=== PATIENT | female | born 1965 | race Hispanic/Latino ===

== ENCOUNTER 2018-04-23 07:53 | Day surgery (SDC) | payer OTHER ==
[2018-04-23] MEDS ORDERED: NEURONTIN ONE (08:35)
[2018-04-23] MEDS ORDERED: TRANSDERM-SCOP TD ONE (08:36)
[2018-04-23] MEDS ORDERED: NACL BACTERIOSTATIC INFILTRATI ONE (08:38)
[2018-04-23] MEDS ORDERED: DILAUDID IV PRN (08:43)
[2018-04-23] MEDS ORDERED: ZOFRAN IV PRN (08:43)
--- NOTE | 2018-04-23 08:44 | Anesthesia Day of Surgery ---
Anesthesia Day of Surgery - Day of Surgery Patient Examined: Yes Patient H&P Reviewed: Yes Patient is NPO: Yes
--- NOTE | 2018-04-23 08:45 | Anesthesia Consultation ---
Anesthesia Consult and Med Hx Date of service: 04/23/18 - Airway Anesthetic Teeth Evaluation: Good ROM Head & Neck: Adequate Mental/Hyoid Distance: Adequate Mallampati Class: Class II Intubation Access Assessment: Probably Good - Pulmonary Exam CTA: Yes - Cardiac Exam Cardiac Exam: RRR - Pre-Operative Health Status ASA Pre-Surgery Classification: ASA2 Proposed Anesthetic Plan: General (GA with LMA ok, PT has severe PONV, Scop patch behind right ear) - Pulmonary Hx Smoking: No Hx Asthma: Yes (INHALER PRN) Hx Sleep Apnea: No (WAGNER PRE SCREEN NEGATIVE) - Cardiovascular System Hx Hypertension: No Hx Heart Murmur: Yes - Central Nervous System Hx Back Pain: Yes (FROM STONE) - Hematic Hx Anemia: Yes ( CHILD) - Other Systems Hx Alcohol Use: Yes (WINE QD) Hx Cancer: No
[2018-04-23] MEDS ORDERED: VERSED IV NR (09:00)
[2018-04-23] MEDS ORDERED: LACTATED RINGERS 1,000 ML IV SCH (09:00)
[2018-04-23] MEDS ORDERED: SUBLIMAZE IV NR (09:43)
[2018-04-23] MEDS ORDERED: DIPRIVAN 10 MG/ML IV ONE (09:47)
[2018-04-23] MEDS ORDERED: XYLOCAINE MPF 2% ONE (09:50)
[2018-04-23] MEDS ORDERED: DILAUDID ONE (09:50)
[2018-04-23] MEDS ORDERED: ZOFRAN IV NR (10:00)
[2018-04-23] MEDS ORDERED: ZOFRAN ONE (10:30)
[2018-04-23] MEDS ORDERED: DECADRON ONE (10:30)
[2018-04-23] MEDS ORDERED: OMNIPAQUE 300 MG/50 ML (CATH LAB) IV ONE (10:45)
[2018-04-23] MEDS ORDERED: ANCEF/STERILE WATER 2 GM/20 ML IV NR (11:00)
[2018-04-23] MEDS ORDERED: PHENERGAN PO ONE (12:33)
--- NOTE | 2018-04-23 13:04 | Short Stay Summary ---
Short Stay Documentation Date of service: 04/23/18 - History H&P: obtained from office - Allergies and Medications Current Medications: Allergies No Known Allergies Allergy (Verified 03/25/18 15:57) Home Medications Medication Instructions Recorded Confirmed Last Taken Type ALBUTEROL Inhaler [Proair] 2 puff IH QID PRN 03/25/18 04/23/18 03/26/18 History Cetirizine HCl [Zyrtec] 10 mg PO DAILY 03/25/18 04/23/18 04/22/18 History HYDROcodone/APAP 5-325 [[place] 1 each PO Q6HR PRN 03/25/18 04/23/18 04/22/18 History 5/325] Tamsulosin [Flomax] 0.4 mg PO QDAY 03/25/18 04/23/18 04/22/18 History HYDROcodone/APAP 10-325 [[place] 0.5 - 1 each PO Q6HR PRN #30 tablet 04/23/18 Unknown Rx 10-325 mg TAB] Sulfamethoxazole/Trimethoprim 1 each PO BID #10 tablet 04/23/18 Unknown Rx [Bactrim DS TAB] Sulfamethoxazole/Trimethoprim 1 tab PO Q12H 04/23/18 04/23/18 04/22/18 19:00 History [Bactrim DS TAB] Active Medications Lactated Ringer's (Lactated Ringers) 1,000 mls @ 75 mls/hr IV DIRECT ANTONELLA Last Admin: 04/23/18 09:17 Dose: 75 mls/hr Midazolam HCl (Versed) 2 mg IV PREOP NR Stop: 04/23/18 23:59 Last Admin: 04/23/18 09:21 Dose: 2 mg - Brief post op/procedure progress note Date of procedure: 04/23/18 Pre-op diagnosis: right uret stone 4mm Post-op diagnosis: same Procedure: right urs, sbe, frag w/ basket, stent 6x26, tatyana rpg Anesthesia: GETA Findings: left hydro Surgeon: JASVIR MCCOY Estimated blood loss: none Pathology: list (stone) Specimen disposition: to lab Condition: stable - Hospital course Hospital course: or pacu home - Disposition Condition at discharge: Good Short Stay Discharge Plan Activity: advance as tolerated Diet: advance as tolerated Follow up with: JASVIR MCCOY MD [Staff Physician] - 7 Days Prescriptions: HYDROcodone/APAP 10-325 [[place] 10-325 mg TAB] 0.5 - 1 each PO Q6HR PRN #30 tablet PRN Reason: Pain Sulfamethoxazole/Trimethoprim [Bactrim DS TAB] 1 each PO BID #10 tablet
--- NOTE | 2018-04-23 14:18 | Fluoroscopy Report ---
FLUOROSCOPY RETROGRADE UROGRAPHY: HISTORY: Calculus of right ureter. FINDINGS: Fluoroscopy was provided by radiology during retrograde urography by the urologist. 15 fluoroscopic images were captured. The left retrograde pyelogram is normal. A filling defect consistent with a stone was identified in the mid to distal right ureter which mildly obstructs. Per the operative notes, right ureteroscopy was performed. A basket was used to extract the stone. The distal right ureter was dilated and a right ureteral stent was placed which adequately drains the right collecting system on the final image. IMPRESSION: Right ureteral stone removal. Right ureteral stent placement.
[2018-04-23 17:13] VITALS: BP 110/71
--- NOTE | 2018-05-03 19:15 | Operative Report ---
PREOPERATIVE DIAGNOSIS: Right ureteral 4 mm stone. POSTOPERATIVE DIAGNOSIS: Right ureteral 4 mm stone. PROCEDURE: Right ureteroscopy, stone basket extraction, fragmentation with stone grasper and 6 x 26 double-J stent and bilateral RPG. ANESTHESIA: General. FINDINGS: Right hydroureter. SURGEON: Dr. Chester Martinez. ESTIMATED BLOOD LOSS: None. PATHOLOGY: Stone minimal fragments. SPECIMENS: To lab. CONDITION: Stable. IMPLANTS: None. COMPLICATIONS: None. CLINICAL INDICATIONS: The patient was counseled RCBA, antibiotics, SCDs. She has a history of the stone with intermittent pain. Eventually after expectant management and considering and canceling surgery, pain, persistent pain and this surgery was scheduled. She had antibiotics, SCDs. DESCRIPTION OF PROCEDURE: The patient was transferred to OR suite in supine position, anesthesia, dorsal lithotomy, prepped and draped in standard fashion. At this point, a 22-[place] scope was passed. No tumors visualized. The right distal J was visualized. Glidewire was passed up to the right renal pelvis. The stent was grasped, pulled out intact. Rigid ureteroscope was assembled. This was passed up the ureter. The stone was identified, 3-prong grasper was passed. We used this to manipulate the stone, but the stone was just fragmented into small pieces. It was a spiculated stone and likely the reason for prolonged obstruction, not passing but with the triceps grasper, it was fragmented to small pieces. Some of the small pieces were grasped and pulled out and dropped it in the bladder and then we removed. The scope was passed again a few times and removed any additional fragments. Post scope passed to the proximal ureter, UPJ and no significant stone, residual stones identified, contrast injected, confirmed our position. Scope withdrawn. Wire backloaded on the cystoscope. A 6 x 26 double-J stent was passed over the wire under direct and fluoroscopic visualization. When the wire and string was removed, there was nice proximal J, nice distal J within the bladder, bladder drained. The patient was awakened and transferred to PACU in good and stable condition. PLAN: Stage for future stent removal. JOB# [id number] ATS/NTS
== END 2018-04-23 14:10 | disposition home or self-care (01) ==
LOC: OR 07:53
PROVIDERS: ATTEND Urology
DX: N20.1 Calculus of ureter (principal); J45.909 Unspecified asthma, uncomplicated; I10 Essential (primary) hypertension; Z79.899 Other long term (current) drug therapy; Z90.710 Acquired absence of both cervix and uterus; Z98.890 Other specified postprocedural states
CPT/HCPCS: 36415; 52356; 74420; 74485; 82365; 82962; C1726; C1758; C1769; C2617; J0690; J1100; J1170; J2250; J2405; J2704; J3010; J7120; Q9967; Q0169